=== PATIENT | female | born 2000 | race Caucasian/White ===

== ENCOUNTER 2024-04-13 23:13 | Inpatient (IN) | payer OTHER, SELFPAY ==
[2024-04-13 16:08] VITALS: BP 109/76
[2024-04-13 16:29] LABS: % Basophils 0.3 % (0-2); % Immature Granulocytes 0.3 % (0-0.5); % Lymphocytes 9.1 % (20.5-51.1); % Neutrophils 88.3 % (42.2-75.2); Absolute Lymphocytes 0.7 10^3/uL (1.2-3.4); Absolute Monocytes 0.2 10^3/uL (0.1-0.6); Absolute Neutrophils 6.5 10^3/uL (1.4-6.5); Hematocrit 37.7 % (37.0-47.0); Hemoglobin 12.8 g/dL (12.0-16.0); Mean Corpuscular Hgb 29.4 pg (27.0-31.0); Mean Corpuscular Volume 86.5 fL (81.0-99.0); Mean Platelet Volume 10.2 fL (7.4-10.4); Nucleated Red Blood Cells % 0 %; Platelet Count 314 10^3/uL (130-400); Red Blood Cell Count 4.36 10^6/uL (4.20-5.40); Red Cell Dist. Width 14.2 % (11.5-14.5); White Blood Cell Count 7.4 10^3/uL (4.8-10.8)
[2024-04-13 16:39] LABS: ALT (SGPT) 16 U/L (0-35); AST (SGOT) 19 U/L (14-36); Albumin 5.1 g/dl (3.5-5.0); Alkaline Phosphatase 73 U/L (38-126); Blood Urea Nitrogen 11 mg/dl (7-17); Calcium 9.7 mg/dl (8.4-10.2); Carbon Dioxide 18 mmol/L (22-30); Chloride 105 mmol/L (98-107); Glucose 102 mg/dl (70-99); Potassium 4.2 mmol/L (3.5-5.1); Sodium 142 mmol/L (135-145); Total Bilirubin 0.4 mg/dl (0.2-1.3); Total Protein 7.9 g/dl (6.3-8.2); eGFR > 60.00
[2024-04-13 16:40] LABS: Lipase 84 U/L (23-300)
--- NOTE | 2024-04-13 18:25 | ED.GENMED ---
History of Present Illness
General
Chief Complaint: Abdominal Symptoms
Source: patient
Exam Limitations: none
Time Seen by Provider: 04/13/24 17:56
History of Present Illness
History of Present Illness:
This is a 23 year old female that comes in with c/o abd pain. States that she has had abd pain for the past couple 5 days. States that she is unable to eat but maybe a cracker. States that this causes increased pain and she starts to shake and then
vomiting. Yesterday she went to the ER at [facility] and was given Steroids and Zofran. States that this has made her worse. States that she called her GI Specialist Dr. Wisdom and she has an appointment with her tomorrow, but was told to come to the
ER for further evaluation. Mom states that they were hoping for imaging. States that she has nausea, vomiting, diarrhea, headache and dizziness. States that she also feels a little SOB. Denies any fever, chills, chest pain, urinary burning.
Past History
Past History
ED Past Medical History: GERD, Psychiatric (Anxiety) and Other (Crohn's disease)
ED Past Surgical History: Other (Greenbrier teeth)
Social History
Tobacco: Non-smoker
Alcohol: None
Personal: Single
Living: other (College)
Review of Systems
Review of Systems
All Other Systems: ROS reviewed and negative except as documented in HPI and ROS
Constitutional: Reports no symptoms; Denies fever or chills
EENT: Reports no symptoms
Respiratory: Reports trouble breathing; Denies cough
Cardiac: Reports no symptoms; Denies chest pain
ABD/GI: Reports abdominal pain, nausea, vomiting and diarrhea
: Reports no symptoms; Denies dysuria, frequency or urgency
Musculoskeletal: Reports no symptoms
Skin: Reports no symptoms
Neurological: Reports dizzy and headache
Psychiatric: Reports no symptoms
Phy Exam
General Physical Exam
General Presentation: no apparent distress
General age: appears stated age
General Skin: warm, dry and pale
General Habitus: normal
General Mental: alert
General Hydration: appears well hydrated
ENT Exam
ENT Exam: TM's normal (Large amount of cerumen both ears), pharynx normal and neck supple
Eye Exam
Eye Exam: EOMI
Cardiovascular Exam
Cardiovascular Exam: regular rate/rhythm, no edema, no murmur and normal peripheral pulses
Pulmonary Exam
Pulmonary Exam: lungs clear, no respiratory distress, no rales, chest non tender, no crackles, no rhonchi, no wheezing and no cough
Gastrointestinal Exam
Gastrointestinal Exam: normal bowel sounds, soft, no organomegaly, no pulsatile mass, non distended and tender (Left sided abd tenderness with palpation)
Musculoskeletal Exam
Musculoskeletal Exam: full ROM and no edema
Skin Exam
Skin Exam: warm/dry, no rash, no petechia and pallor
Psychiatric Exam
Psychiatric Exam: normal mood/affect
Course
Orders/Labs/Results
Orders:
Orders
04/13/24 16:16
Complete Blood Count/With Diff Urgent
Comprehensive Metabolic Panel Urgent
Lipase Urgent
04/13/24 18:24
CT Abd/pel W Iv And Oral Contr Urgent
Comment: Crohns history
Reason For Exam: Left sided abd pain
0.9% Sodium Chloride 1000 ml [Nss] 1,000 ml IV BOLUS
Acetaminophen [Tylenol] 1,000 mg PO NOW STA
Iohexol [Omnipaque] See Protocol PO NOW STA
Ondansetron Injectable [Zofran] 4 mg IV NOW STA
Abnormal Lab Results
04/13/24
16:16
Absolute Lymphs (auto) 0.7 L 10^3/uL
(1.2-3.4)
Neutrophils % 88.3 H %
(42.2-75.2)
Lymphocytes % 9.1 L %
(20.5-51.1)
Carbon Dioxide 18 L mmol/L
(22-30)
Glucose 102 H mg/dl
(70-99)
Albumin 5.1 H g/dl
(3.5-5.0)
04/13/24 16:16
04/13/24 16:16
Carbon dioxide low. Glucose nonfasting. Lipase normal at 84
Vital Signs
Initial and Last Documented VS:
Initial Vital Signs
Temp Pulse Resp BP Pulse Ox
98.1 F 87 18 109/76 99
04/13/24 16:08 04/13/24 16:08 04/13/24 16:08 04/13/24 16:08 04/13/24 16:08
Last Documented Vital Signs
Temp Pulse Resp BP Pulse Ox
98.1 F 87 18 109/76 99
04/13/24 16:08 04/13/24 16:08 04/13/24 16:08 04/13/24 16:08 04/13/24 16:08
MDM/Problems Addressed
Differential Diagnosis Includes:
Crohn;s flare
MDM/Problems Addressed:
This is a 23 year old female that comes in with c/o abd pain. States that she has not been able to eat for the past 5 days. States that she has abd pain so she went to the ER at [facility] yesterday. Patient was given Zofran and a steroid. States
that this seems to have made things worse. Patient has an appointment with the GI specialist tomorrow.
Will check labs and get CT scan.
Message sent to Dr. Bustillo with cope of CT report. Will await his response.
Spoke with Gi and will admit patient. Start on Solumedrol 20mg IV TID and will get stool for C-diff and Culture. GI on Consult. Hospitalist notified. Back into see patient and family. Explained that her CT shows that there is a lot of wall
thickening. Will admit
Chronic conditions affecting care:
Crohn's
Acute Exacerbation and/or Progression of Chronic Illness:
Crohn's
*Radiology
Radiology exam reviewed: radiology read reviewed (CT- Moderate contiguous thickening involving th distalileum, involving approximately the distal 20cm. Luminal narrowing, but no evidence for significant small bowel obstruction. NO evidence of
abscess. No evidence of free intraperitoneal air. Minimal pelvic fluid in the right posterior pelvis. ) and other (CT cont-The appendix appears normal. )
*Pulse Oximetry
Patient hypoxic: no
*EKG
Interpreted by ED Provider?: NA
Rate: EKG- N/A
*Oracle Fusion Developer Interpretation
Rate: Oracle Fusion Developer- N/A
*Critical Care Note
Total Time (30-74mins, 75-104mins- exclusive of procedures): Not Applicable
ED Attending Note
-
Portions of this chart may have been created with voice recognition software.� Occasional wrong word or��sound alike� substitutions may have occurred due to the inherent limitations of voice recognition software.
Discharge Plan
Departure
Patient Disposition: Admit
Date of Disposition: 04/13/24
Time of Disposition: 22:10
Admit to: Med/Surg
Presentation/result/management discussed w/ accepting MD/DO: Hospitalist
Patient with high blood pressure during this ER visit?: No
Condition: Good
Covid-19: Not Applicable
Discharge Problem:
Abdominal pain, Crohn's disease
Prescriptions:
No Action
cephalexin 500 MG capsule
500 mg PO TID Qty: 29 0RF
Referrals:
Marin Mosley MD [Family Provider] -
Interventions
Interventions:
*Risk Screen - Suicide Last Done: 04/13/24 16:08
*General Assessment Last Done: 04/13/24 16:08
*Neglect/Abuse Screening Last Done: 04/13/24 16:08
*ED COVID-19 Vaccine History Last Done: 04/13/24 16:08
QO-Bygpay-Mtdrnoyxze Assessment Last Done: 04/13/24 18:43
Discharge Date and Time
Print Language: SETSWANA
[2024-04-13] MEDS: NSS 1000 IV (18:41)
[2024-04-13] MEDS: OMNIPAQUE 50 ML PO (18:42)
[2024-04-13] MEDS: TYLENOL 1000 MG PO (18:42)
[2024-04-13] MEDS: ZOFRAN 4 MG IV (18:42)
[2024-04-13 21:53] VITALS: BP 109/67
[2024-04-13] MEDS: SOLU-MEDROL PF 20 MG IV (22:18)
--- NOTE | 2024-04-13 22:56 | HPS.HSE ---
Family Physician
-
Family Physician: Marin Mosley
Chief Complaint
-
abdominal pain, poor PO tolerence ,
History of Present Illness
23F HX Erin dz on Skyrizi IV q8 week seen at ER:
- onset of abd pain for last 5 days
- unable to eat due to increased pain
- intolerance to shakes thn vomiting.
- Yesterday she went to the ER at [facility] and was given Steroids and Zofran. -
- patient called GI Specialist Dr. Wisdom and she has an appointment with her tomorrow, but was told to come to the ER for further evaluation
ROS
POS nausea, vomiting, diarrhea, headache and dizziness.
Denies any fever, chills, chest pain, urinary burning.
Medical History
Past Medical History
Past Medical History: Reports Psychiatric (anxiety ) and Other (crohn dz )
Past Surgical History: Reports None
Social History
Tobacco: Non-smoker
Alcohol: None
Drug: None
Family History
Family History: Not pertinent
Allergies / Home Medications
Allergies reflects when Allergies were last updated in [facility].
Home Medications with original date entered in [facility]
Allergy/Medication List:
Allergies
Allergy/AdvReac Type Severity Reaction Status Date / Time
lactose Allergy Unknown Verified 04/13/24 16:11
Home Medications
Skyrizi 1 dose IV Q8W 04/13/24
cholecalciferol (vitamin D3) 25 mcg (1,000 unit) tablet 25 mcg PO HS 04/13/24
escitalopram oxalate 10 mg tablet 10 mg PO HS 04/13/24
Review of Systems
-
Constitutional: Reports No Symptoms
EENT: Reports No Symptoms
Respiratory: Reports No Symptoms
Cardiac: Reports No Symptoms
Abdomen/GI: Reports Abdominal Pain, Nausea and Vomiting
: Reports No Symptoms
Musculoskeletal: Reports No Symptoms
Skin: Reports No Symptoms
Neurological: Reports No Symptoms
Endocrine: Reports No Symptoms
Hematologic/Lymphatic: Reports No Symptoms
Psych: Reports No Symptoms
Physical Exam
Vital Signs
Vital Signs
Temp Pulse Resp BP Pulse Ox
98.5 F 70 16 109/67 97
04/13/24 21:53 04/13/24 22:00 04/13/24 21:53 04/13/24 21:53 04/13/24 21:53
Physical Exam
General: Well Developed, Well Nourished and No Apparent Distress
HEENT: NormoCephalic, Moist mucous membranes and Atraumatic
Respiratory: Clear
Cardiac: S1/S2 and Regular Rhythm; No Murmur or Rub
GI: Soft, Non Distended, Normal Bowel Sounds and Tender ( Left sided abd tenderness with palpation ); No Organomegaly
Rectal: Deferred by Provider
Musculoskeletal: No Clubbing, No Cyanosis and No Edema
Skin: No Rash
Neuro: Nonfocal/grossly intact
Laboratory Results
-
04/13/24 16:16
04/13/24 16:16
Laboratory Results
Total Bilirubin 0.4 mg/dl (0.2-1.3) 04/13/24 16:16
AST 19 U/L (14-36) 04/13/24 16:16
ALT 16 U/L (0-35) 04/13/24 16:16
Alkaline Phosphatase 73 U/L (38-126) 04/13/24 16:16
Lipase 84 U/L (23-300) 04/13/24 16:16
Data Reviewed
-
CT Scan: Report Reviewed by me
Lab Data: Labs Reviewed by me
Impression/Plan
-
Data
nl WCC
Hgb 12.8
CO2 18
[address] AP W Iv And Oral Contr
- Moderate contiguous thickening involving the distal ileum, involving approximately the distal 20 cm. Luminal narrowing, - - No evidence for significant small bowel obstruction.
- No evidence of abscess.
- No evidence of free intraperitoneal air.
- Minimal pelvic fluid in the right posterior pelvis.
- The appendix appears normal.
ASSESSMENT & PLAN
Pending Rx reconciliation
AE Crohn's dz
- No evidence for significant small bowel obstruction.
- No evidence of abscess.
- No evidence of free intraperitoneal air.
- Clear diet and ADAT
- IV NS 80/H
- Start on Solumedrol 20mg IV TID
- stool for C-Diff and stool Cx
- GI on Consult
Anxiety
- stable on Escitalopram
DVT Px: SQH
Full code
IP MS
[2024-04-13 23:02] VITALS: BP 108/69
[2024-04-14] VITALS (8 sets, daily range): BP systolic 99–135; BP diastolic 65–77; BMI 19.0
[2024-04-14] MEDS: NSS 1000 IV ×2 (00:39→13:26)
[2024-04-14 06:24] LABS: Hematocrit 35.3 % (37.0-47.0); Hemoglobin 11.9 g/dL (12.0-16.0); Mean Corp Hgb Conc. 33.7 g/dL (33.0-37.0); Mean Corpuscular Volume 86.1 fL (81.0-99.0); Mean Platelet Volume 10.4 fL (7.4-10.4); Platelet Count 301 10^3/uL (130-400); Red Cell Dist. Width 14.2 % (11.5-14.5); White Blood Cell Count 9.4 10^3/uL (4.8-10.8)
[2024-04-14] MEDS: ZOFRAN 4 MG IV (06:30)
[2024-04-14 06:41] LABS: Blood Urea Nitrogen 11 mg/dl (7-17); Carbon Dioxide 18 mmol/L (22-30); Chloride 107 mmol/L (98-107); Estimated Creatinine Clearance 122 ml/min; Glucose 98 mg/dl (70-99); Potassium 4.5 mmol/L (3.5-5.1); Sodium 139 mmol/L (135-145); eGFR > 60.00
[2024-04-14 07:00] LABS: Calcium 9.7 mg/dl (8.4-10.2)
--- NOTE | 2024-04-14 07:14 | CON.GI ---
Consultation
-
Date/Time Consultation Requested: 04/14/24
Date/Time Consultation Performed: 04/14/24
Requesting Provider: ER
Performing Provider: Dr. Wisdom
Reason for Consultation: crohns flare
Medical History
Chief Complaint / HPI
Chief Complaint: Nausea vomiting abdominal pain
History of Present Illness:
Ana is a 23-year-old female with ileocolonic Crohn's disease who previously failed Humira and had been steroid-dependent on budesonide 9 mg since June 2023 who was started on Skyrizi in November 2023 who had been improving and we titrated her off
budesonide as of 2 weeks ago. Unfortunately this week she started having right lower and flank pain, nausea unable to eat or drink along with some mild nonbloody diarrhea. She went to an emergency room near [facility] and was given IV fluids and
had some labs done and was given 50 mg of prednisone. She has been unable to tolerate any oral intake and therefore her mother brought her here to [place].
here in the ER hgb stable with relatively normal CBC, CRP <5, normal CMP, afebrile. 04/13/24 CT with IV/PO contrast showed distal 20cm of the ileum to be moderately thickened but not obstructed. no bowel obstruction. contrast passes into the colon.
no abscess.
Past Medical History
Past Medical History: Other (small bowel crohns, vit D and iron deficiency)
Past Surgical History: None
Social History
Tobacco: Non-Smoker
Alcohol: Occasional
Drug: None
Personal: Single
Living: With Roomate
Family History
Family History: Other (father crohns)
Allergies / Home Medications
Allergy/AdvReac Type Severity Reaction Status Date / Time
lactose Allergy Unknown Verified 04/13/24 16:11
�Medication �Instructions �Recorded
Skyrizi 1 dose IV Q8W 04/13/24
cholecalciferol (vitamin D3) 25 25 mcg PO HS 04/13/24
mcg (1,000 unit) tablet
escitalopram oxalate 10 mg tablet 10 mg PO HS 04/13/24
Review of Systems
-
History Source: Patient
All other systems: A 12 pt ROS was Negative except as stated above in HPI
Constitutional: Reports Weight Loss
Vital Signs
Temp Pulse Resp BP Pulse Ox
98.4 F 61 16 135/77 99
04/14/24 06:27 04/14/24 06:27 04/14/24 06:27 04/14/24 06:27 04/14/24 06:27
Physical Exam
Exam
General: No Apparent Distress
HEENT: Anicteric
Respiratory: Clear
Cardiac: S1/S2
GI: Soft and Tender (mildly tender RLQ)
Neuro: AO x 3
Psych: Calm
Results
WBC 9.4 10^3/uL (4.8-10.8) 04/14/24 06:05
Hgb 11.9 g/dL (12.0-16.0) L 04/14/24 06:05
Hct 35.3 % (37.0-47.0) L 04/14/24 06:05
MCV 86.1 fL (81.0-99.0) 04/14/24 06:05
Plt Count 301 10^3/uL (130-400) 04/14/24 06:05
Absolute Neuts (auto) 6.5 10^3/uL (1.4-6.5) 04/13/24 16:16
Sodium 139 mmol/L (135-145) 04/14/24 06:05
Potassium 4.5 mmol/L (3.5-5.1) 04/14/24 06:05
Chloride 107 mmol/L (98-107) 04/14/24 06:05
Carbon Dioxide 18 mmol/L (22-30) L 04/14/24 06:05
BUN 11 mg/dl (7-17) 04/14/24 06:05
Creatinine 0.7 mg/dL (0.6-1.0) 04/14/24 06:05
Calcium 9.7 mg/dl (8.4-10.2) 04/14/24 06:05
Total Bilirubin 0.4 mg/dl (0.2-1.3) 04/13/24 16:16
AST 19 U/L (14-36) 04/13/24 16:16
ALT 16 U/L (0-35) 04/13/24 16:16
Alkaline Phosphatase 73 U/L (38-126) 04/13/24 16:16
Lipase 84 U/L (23-300) 04/13/24 16:16
Diagnostic Image Results:
04/13/24 -reviewed CT scan showing distal 20 cm of the ileum to be moderately thickened. No obstruction. Oral contrast passes into the colon.
05/2023 MRA showing active inflammatory changes in the terminal ileum with 2 short segments of luminal narrowing with no obstruction
Prior GI Procedures:
EGD: August 2023 at [facility] normal
Colonoscopy: Last colonoscopy was at [facility] in August 2023 showing mild active ileitis otherwise normal colon
Assessment / Plan
-
Ana is a 23-year-old female previously known to [facility] for history of ileocolonic inflammatory, nonpenetrating, not stricturing Crohn's disease with no prior surgeries that involved with terminal ileum and cecum who failed Humira who has been
steroid-dependent recently started Skyrizi in the summer 2023 here with Crohn's flare with ileal inflammation on imaging and clinical symptoms of flare
# Active small bowel Crohn's disease -
IV steroids every 8, if dramatically improves okay to start p.o. tomorrow
Clear liquids
Lovenox
I have asked my office to try and get approval for every 4 weeks Skyrizi
Continue vitamin D, IV iron
Stool studies including fecal calprotectin
Discussed with her father in person in my office
Data Reviewed
-
CT Scan: Image Personally Visualized and interpreted and Report Reviewed by me
Old Records: Reviewed
-
-
Thank you for consultation and allowing me to participate in the patient's care. Please call the tanning consultant GI physician during the after hours with any questions or concerns.
[2024-04-14] MEDS: SOLU-MEDROL PF 20 MG IV ×3 (08:03→23:22)
[2024-04-14 08:44] LABS: Erythrocyte Sed Rate 9 mm/hour (0-20)
--- NOTE | 2024-04-14 08:53 | W.PN.HOSP.TC ---
Today's Communication/Plan
-
Check stool for C. difficile and bacteria
Maintain on steroid
Assessment / Plan
Assessment / Plan
CT AP W Iv And Oral Contr
- Moderate contiguous thickening involving the distal ileum, involving approximately the distal 20 cm. Luminal narrowing, - - No evidence for significant small bowel obstruction.
- No evidence of abscess.
- No evidence of free intraperitoneal air.
- Minimal pelvic fluid in the right posterior pelvis.
- The appendix appears normal.

1. Crohn's disease flareup
-Patient has a history of Crohn's disease for few years, following with Dr. Wisdom
-Denies any complicating factor of abscess/fistulous tract formation in the past
-Currently being maintained on Skyrizi every 8 weeks
-Patient was recommended to come to ER by Dr. Wisdom
-CTAP in ER showing thickening of distal ileal segment of roughly 20 cm
-Maintain on clear liquid diet with advancement as tolerated
-Patient started on IV Solu-Medrol 20 mg every 8 hours
-Stool check to r/o C. difficile and bacterial etiology
-GI following and help appreciated
2. Anxiety
- stable on Escitalopram
DVT Px: SQH
Full code
Total time spent : 52 mins
Anticipated Discharge: 24 - 48 hours
Subjective/Interval History
-
Date of Service: April 14, 2024
Some abdominal discomfort, no nausea vomiting
Afebrile
No other reported issues
Objective Data
-
Labs:
Laboratory Results
04/14/24
06:05
WBC 9.4
Hgb 11.9 L
Hct 35.3 L
Plt Count 301
Sodium 139
Potassium 4.5
Chloride 107
Carbon Dioxide 18 L
BUN 11
Creatinine 0.7
Glucose 98
Calcium 9.7
Vital Signs:
Vital Signs
Temp Pulse Resp BP Pulse Ox
98.6 F 60 15 110/65 98
04/14/24 07:35 04/14/24 07:35 04/14/24 07:35 04/14/24 07:35 04/14/24 07:35
Review of Systems
-
Respiratory: Reports No Symptoms
Cardiac: Reports No Symptoms
Abdomen/GI: Reports Abdominal Pain and Diarrhea; Denies Nausea or Vomiting
Physical Exam
-
General: No Apparent Distress and Comfortable
HEENT: Negative Oxygen
Respiratory: Clear to Auscultation
Cardiac: Regular Rhythm and S1/S2; Negative Murmur or Rub
GI: Soft, Nontender, Nondistended and Normal Bowel Sounds
Musculoskeletal: No Edema
Neuro: Awake, Alert, Oriented, No Motor Deficits and Nonfocal/Grossly Intact
Psych: Calm
[2024-04-14 09:03] LABS: C-Reactive Protein < 5.00 mg/L (0.0-10.00)
[2024-04-14] MEDS: FERRLECIT 110 MG IV (13:27)
--- NOTE | 2024-04-14 13:52 | CM ---
CM reviewed chart. CM introduced self and role. Patient's parents also in room. 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 She denies any +SDOHs. She is independent, drives and owns no DME. She lives with her
parents when she is not at school. Her parents will provide transportation once she is discharged from the hospital. She has an active PCP and pharmacy.
ANTICIPATED DISCHARGE DISPOSITION: Home with parents, when medically cleared.
--- NOTE | 2024-04-14 16:52 | PTCARENOTE ---
Patient admitted to . [facility]. Patient oriented to unit. IVF transfusing. Parents at bedside. Call ang within reach .
[2024-04-14] MEDS: LEXAPRO 10 MG PO (23:22)
[2024-04-15] MEDS: NSS 1000 IV (02:47)
[2024-04-15 06:23] LABS: Hematocrit 34.4 % (37.0-47.0); Hemoglobin 11.2 g/dL (12.0-16.0); Mean Corp Hgb Conc. 32.6 g/dL (33.0-37.0); Mean Corpuscular Hgb 28.8 pg (27.0-31.0); Mean Corpuscular Volume 88.4 fL (81.0-99.0); Platelet Count 282 10^3/uL (130-400); Red Blood Cell Count 3.89 10^6/uL (4.20-5.40); Red Cell Dist. Width 14.2 % (11.5-14.5); White Blood Cell Count 9.1 10^3/uL (4.8-10.8)
[2024-04-15 06:35] LABS: Blood Urea Nitrogen 12 mg/dl (7-17); Calcium 9.2 mg/dl (8.4-10.2); Carbon Dioxide 26 mmol/L (22-30); Chloride 104 mmol/L (98-107); Estimated Creatinine Clearance 114 ml/min; Glucose 101 mg/dl (70-99); Potassium 4.5 mmol/L (3.5-5.1); Sodium 141 mmol/L (135-145); eGFR > 60.00
[2024-04-15 07:20] VITALS: BP 104/62
[2024-04-15] MEDS: SOLU-MEDROL PF 20 MG IV ×3 (08:50→23:00)
--- NOTE | 2024-04-15 10:59 | W.PN.GI.CBS2 ---
Today's Communication / Plan
-
full liquid diet
continue IV steroid
Assessment / Plan
-
Ana is a 23-year-old female previously known to [facility] for history of ileocolonic inflammatory, nonpenetrating, not stricturing Crohn's disease with no prior surgeries that involved with terminal ileum and cecum who failed Humira who has been
steroid-dependent recently started Skyrizi in the summer 2023 here with Crohn's flare with ileal inflammation on imaging and clinical symptoms of flare
# Active small bowel Crohn's disease -
continue IV solumedrol 20 mg tid for another 24 hours . if clinically better we can switch to oral steroids tomorrow
Full liquid diet
Lovenox
have asked GI office to try and get approval for every 4 weeks Skyrizi
Continue vitamin D, IV iron
stool c.diff negative. Follow up Stool culture / fecal calprotectin
Planned Discussed with patient's mother as well
Total Time Spent with Patient (in minutes): 35
Subjective
Subjective
Date of Service: April 15, 2024
feeling better. abdominal pain 08/23 now. still having loose stools . tolerating CL
Objective
Data Reviewed
Laboratory Data:
Laboratory Results
04/15/24 05:30
04/15/24 05:30
Laboratory Results
Total Bilirubin 0.4 mg/dl (0.2-1.3) 04/13/24 16:16
AST 19 U/L (14-36) 04/13/24 16:16
ALT 16 U/L (0-35) 04/13/24 16:16
Alkaline Phosphatase 73 U/L (38-126) 04/13/24 16:16
Lipase 84 U/L (23-300) 04/13/24 16:16
Vital Signs and I&O:
Vital Signs
Temp Pulse Resp BP Pulse Ox
97.6 F 51 14 104/62 96
04/15/24 07:20 04/15/24 07:20 04/15/24 07:20 04/15/24 07:20 04/15/24 07:20
I&O
04/14/24 04/15/24 04/16/24
06:59 06:59 06:59
Intake Total 2159 / 2159
Output Total
Balance 2158 / 2158
Physical Exam
Physical Exam
GI: Soft, Non Distended and Non Tender
--- NOTE | 2024-04-15 11:53 | CM ---
Patient seen at bedside. Patient mother with patient sleeping. Patient plan is home with no needs. CM will follow for any discharge planning needs.
Plan; home with family no needs anticipated at this time
[2024-04-15] MEDS: FERRLECIT 110 MG IV (12:47)
[2024-04-15] MEDS: ZOFRAN 4 MG IV (12:48)
--- NOTE | 2024-04-15 13:52 | W.PN.HOSP.TC ---
Today's Communication/Plan
-
see note
Assessment / Plan
Assessment / Plan
CT AP W Iv And Oral Contr
- Moderate contiguous thickening involving the distal ileum, involving approximately the distal 20 cm. Luminal narrowing, - - No evidence for significant small bowel obstruction.
- No evidence of abscess.
- No evidence of free intraperitoneal air.
- Minimal pelvic fluid in the right posterior pelvis.
- The appendix appears normal.

1. Crohn's disease flareup
-Patient has a history of Crohn's disease for few years, following with Dr. Wisdom
-Denies any complicating factor of abscess/fistulous tract formation in the past
-Currently being maintained on Skyrizi every 8 weeks
-Patient was recommended to come to ER by Dr. Wisdom
-CTAP in ER showing thickening of distal ileal segment of roughly 20 cm
-Patient started on IV Solu-Medrol 20 mg every 8 hours
-GI following and help appreciated
-Not able to tolerate diet today. On [place] diet.
-Zofran ordered for nausea/vomiting
2. Anxiety
- stable on Escitalopram
DVT Px: SQH
Full code
Anticipated Discharge: 24 - 48 hours
Subjective/Interval History
-
Date of Service: April 15, 2024
still have some lower abd pain
no nausea/vomiting
Objective Data
-
Labs:
Laboratory Results
04/15/24
05:30
WBC 9.1
Hgb 11.2 L
Hct 34.4 L
Plt Count 282
Sodium 141
Potassium 4.5
Chloride 104
Carbon Dioxide 26
BUN 12
Creatinine 0.7
Glucose 101 H
Calcium 9.2
Vital Signs:
Vital Signs
Temp Pulse Resp BP Pulse Ox
97.6 F 51 14 104/62 96
04/15/24 07:20 04/15/24 07:20 04/15/24 07:20 04/15/24 07:20 04/15/24 07:20
I&O
04/14/24 04/15/24 04/16/24
06:59 06:59 06:59
Intake Total 2159 / 2159
Output Total
Balance 2158 / 2158
Review of Systems
-
Respiratory: Reports No Symptoms
Cardiac: Reports No Symptoms
Abdomen/GI: Reports No Symptoms
Physical Exam
-
General: No Apparent Distress and Comfortable
HEENT: Negative Oxygen
Respiratory: Clear to Auscultation
Cardiac: S1/S2; Negative Murmur or Rub
GI: Soft and Nondistended
Musculoskeletal: No Edema
Neuro: Awake, Alert, Oriented, No Motor Deficits and Nonfocal/Grossly Intact
Psych: Calm
[2024-04-15 15:47] VITALS: BP 108/64
[2024-04-15 22:58] VITALS: BP 111/69
[2024-04-15] MEDS: LEXAPRO 10 MG PO (22:58)
[2024-04-16 07:07] VITALS: BP 136/75
--- NOTE | 2024-04-16 07:43 | W.PN.GI.CBS2 ---
Today's Communication / Plan
-
Stop IV steroids, transition to oral Prednisone today. Advance diet to low-fiber, low-residue. Favor ongoing observation for additional 24 hrs. If ongoing improvement, likely d/c over weekend with close outpatient f/u with her primary
Professor Of [employer] (Dr. Wisdom).
Assessment / Plan
-
Ana is a 23-year-old female previously known to [facility] for history of ileocolonic inflammatory, nonpenetrating, not stricturing Crohn's disease with no prior surgeries that involved with terminal ileum and cecum who failed Humira who has been
steroid-dependent recently started Skyrizi in the summer 2023 here with Crohn's flare with ileal inflammation on imaging and clinical symptoms of flare
#Active small bowel Crohn's disease
#Crohns Flare
Recommendations:
- Advance diet to low-fiber, low-residue diet
- Stop IV Methylpred (04/14 - 04/16)
- Transition to oral Prednisone 40 mg today given ongoing clinical improvement
- Favor inpatient monitoring for additional 24 hrs while making transition to oral p.o steroids and advancement of diet
- Stool studies (-) for CDI and infectious etiologies, f/u fecal calprotectin
- Continue vitamin D, IV iron
- Chemical VTE ppx with lovenox while inpatient
- Dr. Wisdom have asked GI office to try and get approval for every 4 weeks Skyrizi
Planned Discussed with patient's mother as well early this AM.
Inpatient GI team will continue to follow while inpatient.
Subjective
Subjective
Date of Service: April 16, 2024
- No acute events overnight
Resting comfortably this AM. Had one formed stool over the past 24 hrs. No further diarrhea or loose stools. Admits resolution of abdominal pain without any nausea or vomiting. Reports near relief of all symptoms since being on IV steroids.
Discussed with patient's mother early this AM via FaceTime on patient's phone.
Objective
Data Reviewed
Laboratory Data:
Laboratory Results
Total Bilirubin 0.4 mg/dl (0.2-1.3) 04/13/24 16:16
AST 19 U/L (14-36) 04/13/24 16:16
ALT 16 U/L (0-35) 04/13/24 16:16
Alkaline Phosphatase 73 U/L (38-126) 04/13/24 16:16
Lipase 84 U/L (23-300) 04/13/24 16:16
Vital Signs and I&O:
Vital Signs
Temp Pulse Resp BP Pulse Ox
98.3 F 66 16 136/75 100
04/16/24 07:07 04/16/24 07:07 04/16/24 07:07 04/16/24 07:07 04/16/24 07:07
I&O
04/15/24 04/16/24 04/17/24
06:59 06:59 06:59
Intake Total 2160 / 2160 3010 / 3010
Output Total
Balance 2159 / 2159 3010 / 3010
Physical Exam
Physical Exam
HEENT: Anicteric and Moist mucous membranes
Cardiology: Normal Sinus Rhythm
Pulmonary: Clear
GI: Soft, Non Distended, Flat and Non Tender
Extremities: No Edema and Warm
Neuro: Non Focal
[2024-04-16 08:29] LABS: Blood Urea Nitrogen 10 mg/dl (7-17); Calcium 9.8 mg/dl (8.4-10.2); Carbon Dioxide 26 mmol/L (22-30); Chloride 101 mmol/L (98-107); Estimated Creatinine Clearance 100 ml/min; Glucose 89 mg/dl (70-99); Potassium 4.1 mmol/L (3.5-5.1); Sodium 141 mmol/L (135-145); eGFR > 60.00
[2024-04-16 08:32] LABS: Hematocrit 39.9 % (37.0-47.0); Hemoglobin 13.2 g/dL (12.0-16.0); Mean Corp Hgb Conc. 33.1 g/dL (33.0-37.0); Mean Corpuscular Hgb 29.1 pg (27.0-31.0); Mean Corpuscular Volume 88.1 fL (81.0-99.0); Platelet Count 342 10^3/uL (130-400); Red Blood Cell Count 4.53 10^6/uL (4.20-5.40); White Blood Cell Count 9.9 10^3/uL (4.8-10.8)
[2024-04-16] MEDS: DELTASONE 40 MG PO (08:44)
[2024-04-16] MEDS: ZOFRAN 4 MG IV (08:48)
[2024-04-16 11:11] VITALS: BP 124/85
--- NOTE | 2024-04-16 11:12 | PTCARENOTE ---
Patient having increased nausea this am. Zofran given around 0900 per order. Patient has not eaten. Patient dry heaving but no emesis. Patient had one soft formed bm. VSS. No prn medication to give at this time. made aware.
[2024-04-16] MEDS: REGLAN 5 MG IV (11:36)
--- NOTE | 2024-04-16 12:44 | W.PN.HOSP.TC ---
Today's Communication/Plan
-
continue steroids per GI
encourage oral intake
Assessment / Plan
Assessment / Plan
CT AP W Iv And Oral Contr
- Moderate contiguous thickening involving the distal ileum, involving approximately the distal 20 cm. Luminal narrowing, - - No evidence for significant small bowel obstruction.
- No evidence of abscess.
- No evidence of free intraperitoneal air.
- Minimal pelvic fluid in the right posterior pelvis.
- The appendix appears normal.

1. Crohn's disease flareup
-Patient has a history of Crohn's disease for few years, following with Dr. Wisdom
-Denies any complicating factor of abscess/fistulous tract formation in the past
-Currently being maintained on Skyrizi every 8 weeks
-Patient was recommended to come to ER by Dr. Wisdom
-CTAP in ER showing thickening of distal ileal segment of roughly 20 cm
-Patient started on IV Solu-Medrol 20 mg every 8 hours initially, now switched to prednisone 40mg/d
-GI following and help appreciated
-Diet has been changed to LR diet
-continue monitoring
2. Anxiety
- stable on Escitalopram
DVT Px: SQH
Full code
Anticipated Discharge: 24 - 48 hours
Subjective/Interval History
-
Date of Service: April 16, 2024
continues to feel nauseous/poor apetite
afebrile
no other reported problems
Objective Data
-
Labs:
Laboratory Results
04/16/24
06:48
WBC 9.9
Hgb 13.2
Hct 39.9
Plt Count 342 D
Sodium 141
Potassium 4.1
Chloride 101
Carbon Dioxide 26
BUN 10
Creatinine 0.8
Glucose 89
Calcium 9.8
Vital Signs:
Vital Signs
Temp Pulse Resp BP Pulse Ox
97.9 F 83 16 124/85 100
04/16/24 11:11 04/16/24 11:11 04/16/24 11:11 04/16/24 11:11 04/16/24 07:07
I&O
04/15/24 04/16/24 04/17/24
06:59 06:59 06:59
Intake Total 2160 / 2160 3010 / 3010
Output Total
Balance 2159 / 2159 3010 / 3010
Review of Systems
-
Respiratory: Reports No Symptoms
Cardiac: Reports No Symptoms
Abdomen/GI: Reports Abdominal Pain, Nausea and Diarrhea
Physical Exam
-
General: No Apparent Distress and Comfortable
HEENT: Negative Oxygen
Respiratory: Clear to Auscultation
Cardiac: S1/S2; Negative Murmur or Rub
GI: Soft and Nondistended
Musculoskeletal: No Edema
Neuro: Awake, Alert, Oriented, No Motor Deficits and Nonfocal/Grossly Intact
Psych: Calm
[2024-04-16] MEDS: FERRLECIT IV (13:29)
[2024-04-16 15:00] VITALS: BP 102/67
[2024-04-16] MEDS: LEXAPRO 10 MG PO (21:45)
[2024-04-16 23:27] VITALS: BP 115/76
[2024-04-17] MEDS: ZOFRAN 4 MG IV ×2 (01:08→09:09)
[2024-04-17] MEDS: FLUSH (NSS) 2 FLUSH IV ×2 (01:10→23:28)
[2024-04-17 07:05] VITALS: BP 95/62
[2024-04-17] MEDS: DELTASONE 40 MG PO (08:23)
--- NOTE | 2024-04-17 09:32 | W.PN.GI.CBS2 ---
Today's Communication / Plan
-
Worsening symptoms with abdominal cramping and diarrhea on p.o prednisone. Restarted IV steroids for additional 24-48 hrs in hopes of improvement for her Crohn's flare. Discussed with patient's mother this AM. Rest of care as outlined below.
Assessment / Plan
-
Ana is a 23-year-old female previously known to [facility] for history of ileocolonic inflammatory, nonpenetrating, not stricturing Crohn's disease with no prior surgeries that involved with terminal ileum and cecum who failed Humira who has been
steroid-dependent recently started Skyrizi in the summer 2023 here with Crohn's flare with ileal inflammation on imaging and clinical symptoms of flare
#Active small bowel Crohn's disease
#Crohns Flare
Recommendations:
- May continue low-fiber, low-residue diet
- Transitioned to oral Prednisone on 04/16 given improving symptoms, but with worsening cramping and recurrent diarrhea with increase frequency in BMs
- Restart IV Methylpred 20 mg q8 hrs today. May need an additional 24-48 hrs of IV steroids (previously on IV steroids from 04/14 - 04/15 - total of 2 days)
- Stool studies (-) for CDI and infectious etiologies, f/u fecal calprotectin
- Continue vitamin D, IV iron
- Chemical VTE ppx with lovenox while inpatient
- Dr. Wisdom have asked GI office to try and get approval for every 4 weeks Adithya. Will look into this further next week on Friday
- Rest of care per primary team
Planned discussed with patient's mother early this AM via FaceTime.
Discussed with internal medicine primary team.
Inpatient GI team will continue to follow while inpatient.
Subjective
Subjective
Date of Service: April 17, 2024
- No acute events overnight
Feeling worse yesterday late afternoon / evening with cramping overnight. Had diarrhea with looser stools with mucus after switching back to oral steroids. Previously having one BM on IV steroids, now 3 episodes over 24 hrs. Was able to eat lunch /
dinner and had turkey and soup without difficulty. Mild nausea but no vomiting. Otherwise, fevers/chills or night sweats.
Objective
Data Reviewed
Laboratory Data:
Laboratory Results
04/16/24 06:48
04/16/24 06:48
Laboratory Results
Total Bilirubin 0.4 mg/dl (0.2-1.3) 04/13/24 16:16
AST 19 U/L (14-36) 04/13/24 16:16
ALT 16 U/L (0-35) 04/13/24 16:16
Alkaline Phosphatase 73 U/L (38-126) 04/13/24 16:16
Lipase 84 U/L (23-300) 04/13/24 16:16
Vital Signs and I&O:
Vital Signs
Temp Pulse Resp BP Pulse Ox
98.3 F 58 16 95/62 100
04/17/24 07:05 04/17/24 07:05 04/17/24 07:05 04/17/24 07:05 04/17/24 07:05
I&O
04/16/24 04/17/24 04/18/24
06:59 06:59 05:59
Intake Total 3010 / 3010 1320 / 1320
Balance 3010 / 3010 1320 / 1320
Physical Exam
Physical Exam
HEENT: Anicteric and Moist mucous membranes
Cardiology: Normal Sinus Rhythm
Pulmonary: Clear
GI: Soft, Non Distended and Tender (Mild tenderness throughout abdomen without rebound/guarding)
Extremities: No Edema
Neuro: Non Focal
[2024-04-17] MEDS: SOLU-MEDROL PF 20 MG IV ×3 (10:58→23:25)
--- NOTE | 2024-04-17 12:28 | W.PN.HOSP.TC ---
Today's Communication/Plan
-
started on iv steroids
diet as tolerated
Assessment / Plan
Assessment / Plan
CT AP W Iv And Oral Contr
- Moderate contiguous thickening involving the distal ileum, involving approximately the distal 20 cm. Luminal narrowing, - - No evidence for significant small bowel obstruction.
- No evidence of abscess.
- No evidence of free intraperitoneal air.
- Minimal pelvic fluid in the right posterior pelvis.
- The appendix appears normal.

1. Crohn's disease flareup
-Patient has a history of Crohn's disease for few years, following with Dr. Wisdom
-Denies any complicating factor of abscess/fistulous tract formation in the past
-Currently being maintained on Skyrizi every 8 weeks
-Patient was recommended to come to ER by Dr. Wisdom
-CTAP in ER showing thickening of distal ileal segment of roughly 20 cm
-GI following and help appreciated
-Diet has been changed to LR diet
-in light of ongoing symptoms patient have been switched back to IV steroids again. GI managing.
-IV ferlicit hold if confounding with abd symptoms.
2. Anxiety
- stable on Escitalopram
DVT Px: SQH
Full code
Anticipated Discharge: > 48 hours
Subjective/Interval History
-
Date of Service: April 17, 2024
continues to have nausea, no vomiting
have some abd discomfort/pain as well
continues to have diarrhea
Objective Data
-
Vital Signs:
Vital Signs
Temp Pulse Resp BP Pulse Ox
98.3 F 58 16 95/62 100
04/17/24 07:05 04/17/24 07:05 04/17/24 07:05 04/17/24 07:05 04/17/24 07:05
I&O
04/16/24 04/17/24 04/18/24
06:59 06:59 05:59
Intake Total 3010 / 3010 1320 / 1320
Balance 3010 / 3010 1320 / 1320
Review of Systems
-
Respiratory: Reports No Symptoms
Cardiac: Reports No Symptoms
Abdomen/GI: Reports Abdominal Pain, Nausea and Diarrhea
Physical Exam
-
General: No Apparent Distress and Comfortable
HEENT: Negative Oxygen
Respiratory: Clear to Auscultation
Cardiac: S1/S2; Negative Murmur or Rub
GI: Soft and Nondistended
Musculoskeletal: No Edema
Neuro: Awake, Alert, Oriented, No Motor Deficits and Nonfocal/Grossly Intact
Psych: Calm
[2024-04-17 15:05] VITALS: BP 107/72
[2024-04-17] MEDS: LEXAPRO 10 MG PO (21:25)
[2024-04-17 23:04] VITALS: BP 96/66
[2024-04-18 07:03] VITALS: BP 102/63
[2024-04-18 07:05] LABS: Hematocrit 40.9 % (37.0-47.0); Hemoglobin 13.7 g/dL (12.0-16.0); Mean Corp Hgb Conc. 33.5 g/dL (33.0-37.0); Mean Corpuscular Hgb 29.8 pg (27.0-31.0); Mean Corpuscular Volume 88.9 fL (81.0-99.0); Mean Platelet Volume 10.7 fL (7.4-10.4); Platelet Count 347 10^3/uL (130-400); Red Cell Dist. Width 13.6 % (11.5-14.5); White Blood Cell Count 12.9 10^3/uL (4.8-10.8)
[2024-04-18 07:22] LABS: Blood Urea Nitrogen 16 mg/dl (7-17); Carbon Dioxide 25 mmol/L (22-30); Chloride 102 mmol/L (98-107); Estimated Creatinine Clearance 114 ml/min; Glucose 95 mg/dl (70-99); Potassium 4.5 mmol/L (3.5-5.1); Sodium 142 mmol/L (135-145); eGFR > 60.00
[2024-04-18] MEDS: SOLU-MEDROL PF 20 MG IV ×3 (08:18→23:08)
--- NOTE | 2024-04-18 08:33 | W.PN.GI.CBS2 ---
Today's Communication / Plan
-
Continue IV Methylpred 20 mg TiD for additional 24 hrs, repeat CRP pending along with fecal calprotectin. Plan to transition to oral Prednisone tomorrow. Hopeful for improvement in next 24-48 hrs. Rest of care as outlined below.
Assessment / Plan
-
Ana is a 23-year-old female previously known to [facility] for history of ileocolonic inflammatory, nonpenetrating, not stricturing Crohn's disease with no prior surgeries that involved with terminal ileum and cecum who failed Humira who has been
steroid-dependent recently started Skyrizi in the summer 2023 here with Crohn's flare with ileal inflammation on imaging and clinical symptoms of flare
#Active small bowel Crohn's disease
#Crohns Flare
Recommendations:
- May continue low-fiber, low-residue diet
- Transitioned back to IV Methylpred 20 mg TiD yesterday, 04/17, given worsening pain and loose stools when switched to oral Prednisone (04/16)
- She only received a total of 48 hrs of IV steroids from admission and possibly transitioned to orals too early given her improving symptoms and previous nml CRP
- Favor additional day of IV Methylpred 20 mg TiD for an additional 24 hrs (would be total of 4 days in total of IV steroids 04/14 - 04/15 and 04/17 - 04/18)
- Plan to transition to oral Prednisone 40 mg tomorrow
- Have ordered repeat CRP to give us more objective data to assess for any ongoing inflammation (prior CRP < 5.00 on 04/14)
- Fecal calprotectin still pending
- Slight increase in leukocytosis with WBC 12k, but likely steroid-induced
- Stool studies (-) for CDI and infectious etiologies
- Continue vitamin D, IV iron
- Chemical VTE ppx with lovenox while inpatient
- Will help arrange close f/u with her outpatient Clinical Informatics Specialist (Dr. Wisdom) and further look into approval regarding approval for Skyrizi q 4 weeks
- Rest of care per primary team
Discussed with internal medicine primary team this AM.
Inpatient GI team will continue to follow while inpatient.
Subjective
Subjective
Date of Service: April 18, 2024
- Transitioned back to IV Methylpred 20 mg TiD yesterday given worsening pain and loose stools when switched to oral Prednisone (04/16)
- CRP on admission wnl (< 5.00)
Feeling better this morning, was finally able to eat dinner. Had fish and mashed potatoes. No fevers, chills or other constitutional symptoms. Anxious about going home, but notes improving abdominal cramps and only 3 looser stools over 24 hrs. No
blood or mucous.
Repeat CRP pending this AM.
Objective
Data Reviewed
Laboratory Data:
Laboratory Results
04/18/24 06:29
04/18/24 06:29
Laboratory Results
Total Bilirubin 0.4 mg/dl (0.2-1.3) 04/13/24 16:16
AST 19 U/L (14-36) 04/13/24 16:16
ALT 16 U/L (0-35) 04/13/24 16:16
Alkaline Phosphatase 73 U/L (38-126) 04/13/24 16:16
Lipase 84 U/L (23-300) 04/13/24 16:16
Vital Signs and I&O:
Vital Signs
Temp Pulse Resp BP Pulse Ox
97.6 F 56 16 102/63 100
04/18/24 07:03 04/18/24 07:03 04/18/24 07:03 04/18/24 07:03 04/18/24 07:03
I&O
04/17/24 04/18/24 04/19/24
07:59 06:59 06:59
Intake Total
Balance
Physical Exam
Physical Exam
HEENT: Anicteric and Moist mucous membranes
Cardiology: Normal Sinus Rhythm
Pulmonary: Clear and Other (Normal WOB on room ait)
GI: Soft, Non Distended and Non Tender
Extremities: No Edema
Neuro: Non Focal
[2024-04-18 08:56] LABS: C-Reactive Protein < 5.00 mg/L (0.0-10.00)
--- NOTE | 2024-04-18 13:35 | W.PN.HOSP.TC ---
Today's Communication/Plan
-
see note
Assessment / Plan
Assessment / Plan
CT AP W Iv And Oral Contr
- Moderate contiguous thickening involving the distal ileum, involving approximately the distal 20 cm. Luminal narrowing, - - No evidence for significant small bowel obstruction.
- No evidence of abscess.
- No evidence of free intraperitoneal air.
- Minimal pelvic fluid in the right posterior pelvis.
- The appendix appears normal.

1. Crohn's disease flareup
-Patient has a history of Crohn's disease for few years, following with Dr. Wisdom
-Denies any complicating factor of abscess/fistulous tract formation in the past
-Currently being maintained on Skyrizi every 8 weeks
-Patient was recommended to come to ER by Dr. Wisdom
-CTAP in ER showing thickening of distal ileal segment of roughly 20 cm
-GI following and help appreciated
-Diet has been changed to LR diet
-IV ferlicit hold as confounding with abd symptoms.
-Continue IV Solu-Medrol for 1 more night, possible transition to oral tomorrow
-CRP normal
2. Anxiety
- stable on Escitalopram
DVT Px: SQH
Full code
Anticipated Discharge: Within 24 hours
Subjective/Interval History
-
Date of Service: April 18, 2024
Subjective feeling better
Denies of having any nausea or vomiting
Decreasing frequency of bowel movements
Abdominal pain is better
Objective Data
-
Labs:
Laboratory Results
04/18/24
06:29
WBC 12.9 H
Hgb 13.7
Hct 40.9
Plt Count 347
Sodium 142
Potassium 4.5
Chloride 102
Carbon Dioxide 25
BUN 16
Creatinine 0.7
Glucose 95
Calcium 10.0
Vital Signs:
Vital Signs
Temp Pulse Resp BP Pulse Ox
97.6 F 56 16 102/63 100
04/18/24 07:03 04/18/24 07:03 04/18/24 07:03 04/18/24 07:03 04/18/24 07:03
I&O
04/17/24 04/18/24 04/19/24
07:59 06:59 06:59
Intake Total
Balance
Review of Systems
-
Respiratory: Reports No Symptoms
Cardiac: Reports No Symptoms
Abdomen/GI: Denies Abdominal Pain, Nausea or Vomiting
Physical Exam
-
General: No Apparent Distress and Comfortable
HEENT: Negative Oxygen
Respiratory: Clear to Auscultation
Cardiac: S1/S2; Negative Murmur or Rub
GI: Soft and Nondistended
Musculoskeletal: No Edema
Neuro: Awake, Alert, Oriented, No Motor Deficits and Nonfocal/Grossly Intact
Psych: Calm
[2024-04-18 15:05] VITALS: BP 104/71
[2024-04-18] MEDS: LEXAPRO 10 MG PO (23:10)
[2024-04-18 23:29] VITALS: BP 100/60
--- NOTE | 2024-04-19 05:43 | W.PN.GI.CBS2 ---
Today's Communication / Plan
-
Improving after additional 48 hrs of IV Methylpred, switch to p.o Prednisone 40 mg today. If ongoing improvement in next 24 hrs on oral steroids can be discharged with close outpatient f/u with her primary Nursing Unit Clerk, Dr. Wisdom. Will d/w with
Dr. Wisdom today particularly if patient is to go later tonight versus tomorrow AM. Rest of care as outlined below.
Assessment / Plan
-
Ana is a 23-year-old female previously known to [facility] for history of ileocolonic inflammatory, nonpenetrating, not stricturing Crohn's disease with no prior surgeries that involved with terminal ileum and cecum who failed Humira who has been
steroid-dependent recently started Skyrizi in the summer 2023 here with Crohn's flare with ileal inflammation on imaging and clinical symptoms of flare
#Active small bowel Crohn's disease
#Crohns Flare
Repeat CRP form 04/18 unchanged from admission with CRP < 5.00 and completed an additional 48 hrs of IV steroids over the weekend after previously failing oral Prednisone on Friday. Suspect she needed more time on IV steroids and her repeat CRP is
reassuring from 04/18.
Recommendations:
- May continue low-fiber, low-residue diet
- Stop IV Methyl pred ( - 04/17 - 04/18)
- Start Prednisone 40 mg once daily with prolonged taper as outpatient
- Repeat CRP reassuring < 5.00 from 04/18
- Fecal calprotectin still pending
- If tolerating low-residue later this afternoon and evening, can likely be discharged later tonight versus tomorrow AM. Discussed with patient this AM
- Slight increase in leukocytosis with WBC 12k, but likely steroid-induced and monitor with repeat CBC this AM
- Stool studies (-) for CDI and infectious etiologies
- Continue vitamin D, IV iron
- Chemical VTE ppx with lovenox while inpatient
- Will help arrange close f/u with her outpatient Nursing Unit Clerk (Dr. Wisdom) and further look into approval regarding approval for Skyrizi q 4 weeks
- Rest of care per primary team
Inpatient GI team will continue to follow while inpatient.
Subjective
Subjective
Date of Service: April 19, 2024
- No acute events
- Repeat CRP form 04/18 unchanged from admission with CRP < 5.00
Feeling well and resting comfortably this AM. Had one formed BM yesterday without any loose stools or diarrhea. Tolerated both lunch and dinner yesterday where she ate mashed potatoes, salmon and green beans without any difficulty. No
nausea/vomiting or other abdominal cramping.
Discussed plan to start oral Prednisone today.
Objective
Data Reviewed
Laboratory Data:
Laboratory Results
04/18/24 06:29
04/18/24 06:29
Laboratory Results
Total Bilirubin 0.4 mg/dl (0.2-1.3) 04/13/24 16:16
AST 19 U/L (14-36) 04/13/24 16:16
ALT 16 U/L (0-35) 04/13/24 16:16
Alkaline Phosphatase 73 U/L (38-126) 04/13/24 16:16
Lipase 84 U/L (23-300) 04/13/24 16:16
Vital Signs and I&O:
Vital Signs
Temp Pulse Resp BP Pulse Ox
98.1 F 74 16 100/60 98
04/18/24 23:29 04/18/24 23:29 04/18/24 23:29 04/18/24 23:29 04/18/24 23:29
I&O
04/17/24 04/18/24 04/19/24
07:59 06:59 06:59
Intake Total 1380 / 1380
Balance 1380 / 1380
Physical Exam
Physical Exam
HEENT: Anicteric and Moist mucous membranes
Cardiology: Normal Sinus Rhythm
Pulmonary: Clear
GI: Soft, Non Distended and Non Tender
Extremities: No Edema
Neuro: Non Focal
--- NOTE | 2024-04-19 07:56 | W.PN.HOSP.TC ---
Today's Communication/Plan
-
Discharge today
Assessment / Plan
Assessment / Plan
Physical Exam
General: No Apparent Distress and Comfortable
HEENT: Normocephalic
Respiratory: Clear to Auscultation Bilaterally
Cardiac: S1/S2;
GI: Soft and Nondistended. Positive bowel sounds.
Musculoskeletal: No Edema
Neuro: Awake, Alert, Oriented, No Motor Deficits and Nonfocal/Grossly Intact
Psych: Calm

CT AP W Iv And Oral Contr
- Moderate contiguous thickening involving the distal ileum, involving approximately the distal 20 cm. Luminal narrowing, - - No evidence for significant small bowel obstruction.
- No evidence of abscess.
- No evidence of free intraperitoneal air.
- Minimal pelvic fluid in the right posterior pelvis.
- The appendix appears normal.

#Active small bowel Crohn's disease
#Steroid-induced leukocytosis
-Patient has a history of Crohn's disease for few years, following with Dr. Wisdom
-Denies any complicating factor of abscess/fistulous tract formation in the past
-Outpatient GI Skyrizi evaluation
-Patient was recommended to come to ER by Dr. Wisdom
-CTAP in ER showing thickening of distal ileal segment of roughly 20 cm
-GI following and help appreciated
-Diet has been changed to LR diet
-IV ferlicit hold as confounding with abd symptoms.
-Status post IV Solu-Medrol
-On discharge: Prednisone 40 mg daily (with 30-day supply), Cholecalciferol 25 mcg daily and PRN Zofran.
-Continue low-fiber, low-residue diet
-Follow-up with Dr. Wisdom outpatient
-I discussed with tower erector helper Dr. Germain via [employer] on April 19, 2024, and patient does not need any iron on discharge
#Anxiety
- stable on Escitalopram
DVT Px: SQH
Full code
I spoke with patient and her dad Jean Claude inside patient's room today. All questions and concerns were answered to satisfaction.
More than 30 minutes spent in discharge including
Final examination of the patient
Summarizing hospital stay
Instructions for continuing care to all relevant caregivers
Preparation of discharge records, prescriptions, and referral forms
Total time spent (in minutes): 42
Anticipated Discharge: Today
Subjective/Interval History
-
Date of Service: April 19, 2024
Patient was seen and examined. She reported feeling fine, denied any symptoms or complaints, and she mentioned she would like to go home today.
Objective Data
-
Labs:
Laboratory Results
04/19/24
06:00
WBC Pending
Hgb Pending
Hct Pending
Plt Count Pending
Sodium Pending
Potassium Pending
Chloride Pending
Carbon Dioxide Pending
BUN Pending
Creatinine Pending
Glucose Pending
Calcium Pending
Total Bilirubin Pending
AST Pending
ALT Pending
Alkaline Phosphatase Pending
Vital Signs:
Vital Signs
Temp Pulse Resp BP Pulse Ox
98.1 F 74 16 100/60 98
04/18/24 23:29 04/18/24 23:29 04/18/24 23:29 04/18/24 23:29 04/18/24 23:29
I&O
04/18/24 04/19/24 04/20/24
06:59 06:59 06:59
Intake Total 1380 / 1380
Balance 1380 / 1380
[2024-04-19 08:00] VITALS: BP 104/81
[2024-04-19] MEDS: DELTASONE 40 MG PO (08:54)
[2024-04-19 09:33] LABS: % Basophils 0.3 % (0-2); % Eosinophils 0.1 % (0-6); % Immature Granulocytes 1.2 % (0-0.5); % Lymphocytes 15.4 % (20.5-51.1); % Monocytes 7.1 % (1.7-9.3); % Neutrophils 75.9 % (42.2-75.2); Absolute Immature Granulocytes 0.1 10^3/uL (0-0.05); Absolute Lymphocytes 1.8 10^3/uL (1.2-3.4); Absolute Monocytes 0.9 10^3/uL (0.1-0.6); Absolute Neutrophils 9.1 10^3/uL (1.4-6.5); Hematocrit 38.7 % (37.0-47.0); Hemoglobin 13.1 g/dL (12.0-16.0); Mean Corp Hgb Conc. 33.9 g/dL (33.0-37.0); Mean Corpuscular Hgb 28.9 pg (27.0-31.0); Mean Corpuscular Volume 85.4 fL (81.0-99.0); Mean Platelet Volume 10.1 fL (7.4-10.4); Nucleated Red Blood Cells % 0 %; Platelet Count 355 10^3/uL (130-400); Red Blood Cell Count 4.53 10^6/uL (4.20-5.40); Red Cell Dist. Width 13.9 % (11.5-14.5)
[2024-04-19 10:06] LABS: ALT (SGPT) 12 U/L (0-35); AST (SGOT) 14 U/L (14-36); Albumin 4.6 g/dl (3.5-5.0); Alkaline Phosphatase 50 U/L (38-126); Blood Urea Nitrogen 19 mg/dl (7-17); Calcium 9.7 mg/dl (8.4-10.2); Carbon Dioxide 27 mmol/L (22-30); Chloride 99 mmol/L (98-107); Estimated Creatinine Clearance 100 ml/min; Glucose 86 mg/dl (70-99); Potassium 4.6 mmol/L (3.5-5.1); Sodium 139 mmol/L (135-145); Total Bilirubin 0.9 mg/dl (0.2-1.3); eGFR > 60.00
--- NOTE | 2024-04-19 11:24 | CM ---
Reviewed the chart notes. CM continues to be available to patient/family and is monitoring medical plan for needs at discharge.
Plan: Discharge when medically stable. No anticipated needs.
[2024-04-19 15:00] VITALS: BP 104/63
--- NOTE | 2024-04-19 16:52 | W.DCSUMMARY ---
Discharge Summary
Discharge Data
Date of Admission: 04/13/24
Date of Discharge: 04/19/24
Total time spent discharging patient (in min): 42
-
Pending Results: No
Hospital Course
23 y/o female with history of Crohn's Disease, who presented with abdominal pain. Patient was started on intravenous steroids. Patient was recommended to come to the emergency room by her food and beverage intern, Dr. Wisdom. CT Abdomen Pelvis was done
showing distal ileum thickening (but please see full radiologist's report for all the details). Patient was transitioned to oral steroids. Stool studies including C. Diff were negative. Patient was then noted to have worsening symptoms, with
abdominal cramping and diarrhea. Intravenous steroids were therefore restarted. Patient's symptoms improved, she was able to tolerate a diet and she was stable for discharge with oral prednisone taper (as discussed with gastroenterology team).
Discharge Plan
-
Patient Disposition: Home (Routine Discharge)
Discharge Diagnosis/Procedures: #Active small bowel Crohn's disease
#Steroid-induced leukocytosis
#Anxiety
CT Abd/pel W Iv And Oral Contr (as per radiologist's report)
'IMPRESSION: Moderate contiguous thickening involving the distal ileum, involving approximately the distal 20 cm. Luminal narrowing, but no evidence for significant small bowel obstruction. No evidence of abscess. No evidence of free intraperitoneal
air.
Minimal pelvic fluid in the right posterior pelvis.
The appendix appears normal.'
Condition: Good
Diet: Low Fiber and Low Residue
Activity: As tolerated
Activity Restrictions/Additional Instructions:
A 1 month's supply of Prednisone tapering dose has been provided to you, after discussion with gastroenterologists Dr. Wisdom and Dr. Germain -- you will need additional Prednisone after another 28 days -- please contact Dr. Wisdom's office for more
Prednisone.
Referrals:
Marin Mosley MD [Family Provider] - in less than 1 week
Zandra Wisdom, DO [Active] - in one to two weeks (Hospital Follow-Up)
Additional Discharge Medication Instructions: Ondansetron and Prednisone Taper are new medications.
Prescriptions:
New
prednisone 10 mg tablet
10 mg PO DIRECTED Qty: 92 0RF
Rx Instructions:
40 mg/day x7 days; 35 mg/day x7 days; 30 mg/day x7 days; 25 mg/day x7 days
ondansetron 4 mg tablet,disintegrating
4 mg PO Q8H PRN (Reason: nausea and vomiting) Qty: 10 0RF
Continued
escitalopram oxalate 10 mg tablet
10 mg PO HS
cholecalciferol (vitamin D3) 25 mcg (1,000 unit) Tablet
25 mcg PO HS
Skyrizi
1 dose IV Q8W
Discharge Orders:
Discharge Patient (As Directed); Ordered 04/19/24
Ordered By: Bret Banegas
Discharge Date and Time
Discharge Date/Time: 04/19/24 18:30
Print Language: UKRAINIAN
[2024-04-19] MEDS: AFLURIA (36 mos+) 2024-2025 FORMULA 0.5 ML IM (17:50)
--- NOTE | 2024-04-19 18:14 | PTCARENOTE ---
Patient discharged home, transported by parents. IV removed by Vicky HASKINS. This RN administered patient's flu vaccine and reviewed discharge instructions with patient and her parents; all verbalized understanding. Low Fiber diet education packet
provided. Patient dressed and gathered belongings independently in room, refused wheelchair escort and ambulated down to car with parents.
[2024-04-20 09:45] LABS: Calprotectin, Fecal 697 ug/g (<=49)
== END 2024-04-19 18:30 | disposition home or self-care (01) | DRG 387 ==
LOC: 2 NORTH 23:13
PROVIDERS: Emergency Medicine; Hospitalist; Nurse Practitioner Family; Student in an Organized Health Care Education/Training Program; ADMITTING PHYSICIAN Internal Medicine; ATTENDING PHYSICIAN Hospitalist; EMERGENCY PHYSICIAN Emergency Medicine; FAMILY PHYSICIAN Family Medicine; OTHER PHYSICIAN Internal Medicine
DX: K50.00 Crohn's disease of small intestine without complications (principal); E61.1 Iron deficiency; E55.9 Vitamin D deficiency, unspecified; F41.9 Anxiety disorder, unspecified; K21.9 Gastro-esophageal reflux disease without esophagitis; Z79.52 Long term (current) use of systemic steroids; Z79.899 Other long term (current) drug therapy
CPT/HCPCS: 74177; 80048; 80053; 83690; 83993; 85025; 85027; 85652; 86140; 87045; 87046; 87324; 87427; 87449; 89055; 90686; 93005; G0008; J2916; Q9967

== ENCOUNTER 2024-08-22 06:26 | Emergency (ER) | payer OTHER, SELFPAY ==
[2024-08-22 06:27] VITALS: BP 114/70
--- NOTE | 2024-08-22 07:17 | ED.GENMED ---
History of Present Illness
General
Chief Complaint: Abdominal Pain
Source: patient, records, family, previous radiology exam and previous hospital records
Exam Limitations: none
Time Seen by Provider: 08/22/24 06:46
Nursing documentation reviewed up to this point in time: agreed with
History of Present Illness
History of Present Illness:
23-year-old female Crohn's diagnosed at age 19 to [facility] followed locally by Dr. Wisdom now on [facility], last colon was few years ago, menstrual cycle now presents with acute onset lower abdominal cramping with nausea vomiting right greater than left no
fever 1 prior CAT scan no bloody stools feeling better now
Past History
Past History
ED Past Medical History: GERD, Psychiatric (Anxiety) and Other (Crohn's disease)
ED Past Surgical History: Other ([place] teeth)
Social History
Tobacco: Non-smoker
Alcohol: None
Drug: None
Personal: Single
Living: with family
Employment: Employed
Review of Systems
Review of Systems
All Other Systems: Not applicable
Constitutional: Denies fever or fatigue
EENT: Reports no symptoms
Respiratory: Reports no symptoms
Cardiac: Reports no symptoms
ABD/GI: Reports abdominal pain, nausea and vomiting
: Reports no symptoms
Endocrine: Reports no symptoms
Hematologic/Lymphatic: Reports no symptoms
Psychiatric: Reports no symptoms
Phy Exam
Physical Exam
Physical Exam:
Physical Exam
General: no apparent distress, not acutely ill
Neck: No jaundice
Heart: s1/s2 regular rate and rhythm, no murmur. equal radial pulses.
Lungs: no acute respiratory distress. clear bilaterally
Abdomen: Tender right greater than left lower abdomen
Neuro: alert and oriented. no focal neurological deficits
Skin: no rash
Psychiatric: well kept. interactive and cooperative
Extremities: no edema.
Course
Orders/Labs/Results
Orders:
Orders
08/22/24 06:52
Test Result ONCE
08/22/24 07:13
0.9% Sodium Chloride 1000 ml [Nss] 1,000 ml IV BOLUS
Ketorolac [Toradol] 30 mg IV NOW STA
Ondansetron Injectable [Zofran] 4 mg IV NOW STA
08/22/24 07:14
US Abdomen - Appendix Only Urgent
Comment:
Reason For Exam: lower abd pain
08/22/24 07:24
Complete Blood Count/With Diff Urgent
ESR [Erythrocyte Sed Rate] Urgent
08/22/24 07:38
C-Reactive Protein Urgent
Comment: ADD ON
Comprehensive Metabolic Panel Urgent
HCG, Serum Qualitative Screen Urgent
Urinalysis Reflex To Culture Urgent
Date Specimen was Collected: 08/22/24
Time Specimen was Collected: 07:25
Urine Microscopic Reflex Cult Urgent
Urine Culture Urgent
KELLY Source: U
Specimen Description:
Date Specimen was Collected: 08/22/24
Time Specimen was Collected: 07:25
08/22/24 08:04
Add On- LAB Urgent
Tests Added?: crp
Abnormal Lab Results
08/22/24 08/22/24
07:24 07:38
WBC 12.1 H 10^3/uL
(4.8-10.8)
RBC 4.10 L 10^6/uL
(4.20-5.40)
MCH 31.2 H pg
(27.0-31.0)
Abs Immat Gran (auto) 0.1 H 10^3/uL
(0-0.05)
Absolute Neuts (auto) 10.4 H 10^3/uL
(1.4-6.5)
Absolute Lymphs (auto) 0.8 L 10^3/uL
(1.2-3.4)
Absolute Monos (auto) 0.8 H 10^3/uL
(0.1-0.6)
Neutrophils % 85.6 H %
(42.2-75.2)
Lymphocytes % 6.9 L %
(20.5-51.1)
ALT 36 H U/L
(0-35)
Ur Occult Blood Reflex 4+ A
(Negative)
Leukocyte Esterase Rfl 1+ A
(Negative)
Urine RBC 7-10 A /HPF
(0-2)
Urine Bacteria (Reflex) Moderate A
(Negative)
Urine Albumin (Reflex) 1+ A
(Neg - Trace)
08/22/24 07:24
08/22/24 07:38
Vital Signs
Initial and Last Documented VS:
Initial Vital Signs
Temp Pulse Resp BP Pulse Ox
97.9 F 85 16 114/70 99
08/22/24 06:27 08/22/24 06:27 08/22/24 06:27 08/22/24 06:27 08/22/24 06:27
Last Documented Vital Signs
Temp Pulse Resp BP Pulse Ox
97.9 F 85 16 114/70 99
08/22/24 06:27 08/22/24 06:27 08/22/24 06:27 08/22/24 06:27 08/22/24 06:27
MDM/Problems Addressed
Differential Diagnosis Includes:
Crohn's enteritis ovarian cyst menstrual cramps appendicitis ectopic
MDM/Problems Addressed:
Abdominal
Chronic conditions affecting care:
Crohn
Acute Exacerbation and/or Progression of Chronic Illness:
Crohn's
*Critical Care Note
Total Time (30-74mins, 75-104mins- exclusive of procedures): Not Applicable
Update Note
Update Note:
7:15 AM suspect Crohn's flare mild, appendicitis possibility, as his other as discussed above, will check inflammatory markers hCG CBC, she is only [address] scan, would like to limit her CT scans obviously with the caveat that would like to not
miss any clinically significant disease
Reviewed decision making with patient and mother
9:20 AM patient feeling better abdomen soft and nontender she is hungry has not received any narcotics her sed rate is 1 CRP is pending believe she can safely be sent home without further imaging will try to facilitate follow-up with her
transcription typist clearly instructed to return to the ER for worsening symptoms
ED Attending Note
-
Portions of this chart may have been created with voice recognition software.� Occasional wrong word or��sound alike� substitutions may have occurred due to the inherent limitations of voice recognition software.
Discharge Plan
Departure
Patient Disposition: Home (Routine Discharge)
Date of Disposition: 08/22/24
Time of Disposition: 09:21
Patient with high blood pressure during this ER visit?: No
Condition: Good
Discharge Problem:
Abdominal pain
Instructions: Nausea and Vomiting, Adult (DC), Abdominal Pain
Prescriptions:
New
ondansetron 4 mg tablet,disintegrating
4 mg PO Q8H PRN (Reason: nausea and vomiting) Qty: 20 0RF
No Action
escitalopram oxalate 10 mg tablet
10 mg PO HS
cholecalciferol (vitamin D3) 25 mcg (1,000 unit) Tablet
25 mcg PO HS
Skyrizi
1 dose IV Q8W
prednisone 10 mg tablet
10 mg PO DIRECTED Qty: 92 0RF
Rx Instructions:
40 mg/day x7 days; 35 mg/day x7 days; 30 mg/day x7 days; 25 mg/day x7 days
ondansetron 4 mg tablet,disintegrating
4 mg PO Q8H PRN (Reason: nausea and vomiting) Qty: 10 0RF
Referrals:
NONE,* [Family Provider] -
Zandra Wisdom DO [Active] - Next open appointment
Activity Restrictions/Additional Instructions:
[place] diet nothing fatty or spicy Zofran as needed for nausea vomiting, Tylenol or ibuprofen for pain, follow-up with your transcription typist return to the ER for worsening symptoms
Interventions
Interventions:
*Risk Screen - Suicide Last Done: 08/22/24 06:27
*General Assessment Last Done: 08/22/24 06:27
*Neglect/Abuse Screening Last Done: 08/22/24 06:27
Discharge Date and Time
Print Language: FIJIAN
[2024-08-22] MEDS: ZOFRAN 4 MG IV (07:30)
[2024-08-22] MEDS: TORADOL 30 MG IV (07:30)
[2024-08-22] MEDS: NSS 1000 IV (07:31)
[2024-08-22 07:34] LABS: % Basophils 0.2 % (0-2); % Eosinophils 0.7 % (0-6); % Immature Granulocytes 0.4 % (0-0.5); % Lymphocytes 6.9 % (20.5-51.1); % Monocytes 6.2 % (1.7-9.3); % Neutrophils 85.6 % (42.2-75.2); Absolute Eosinophils 0.1 10^3/uL (0-0.7); Absolute Immature Granulocytes 0.1 10^3/uL (0-0.05); Absolute Lymphocytes 0.8 10^3/uL (1.2-3.4); Absolute Monocytes 0.8 10^3/uL (0.1-0.6); Absolute Neutrophils 10.4 10^3/uL (1.4-6.5); Hematocrit 37.8 % (37.0-47.0); Hemoglobin 12.8 g/dL (12.0-16.0); Mean Corp Hgb Conc. 33.9 g/dL (33.0-37.0); Mean Corpuscular Hgb 31.2 pg (27.0-31.0); Mean Corpuscular Volume 92.2 fL (81.0-99.0); Mean Platelet Volume 10.2 fL (7.4-10.4); Nucleated Red Blood Cells % 0 %; Platelet Count 192 10^3/uL (130-400); Red Cell Dist. Width 12.1 % (11.5-14.5); White Blood Cell Count 12.1 10^3/uL (4.8-10.8)
[2024-08-22 07:55] LABS: HCG, Serum Qualitative Screen Negative
[2024-08-22 07:58] LABS: ALT (SGPT) 36 U/L (0-35); AST (SGOT) 28 U/L (14-36); Albumin 3.9 g/dl (3.5-5.0); Alkaline Phosphatase 78 U/L (38-126); Blood Urea Nitrogen 15 mg/dl (7-17); Calcium 9.2 mg/dl (8.4-10.2); Carbon Dioxide 25 mmol/L (22-30); Chloride 105 mmol/L (98-107); Glucose 89 mg/dl (70-99); Potassium 3.5 mmol/L (3.5-5.1); Sodium 136 mmol/L (135-145); Total Bilirubin 0.5 mg/dl (0.2-1.3); Total Protein 6.5 g/dl (6.3-8.2); eGFR > 60.00
[2024-08-22 08:00] VITALS: BP 118/68
[2024-08-22 08:09] LABS: Urine Albumin 1+ (Neg - Trace); Urine Bilirubin Negative (Negative); Urine Character Clear (Clear); Urine Color Yellow; Urine Glucose Negative (Negative); Urine Ketone Negative (Negative); Urine Leukocyte 1+ (Negative); Urine Nitrite Negative (Negative); Urine Occult Blood 4+ (Negative); Urine Specific Gravity 1.025 (<1.030); Urine Urobilinogen Negative (Neg - 1+)
[2024-08-22 08:20] LABS: Urine Bacteria Moderate (Negative); Urine White Cell 0-2 /HPF (0-5)
[2024-08-22 08:21] LABS: Erythrocyte Sed Rate 1 mm/hour (0-20)
[2024-08-22 09:57] LABS: C-Reactive Protein < 5.00 mg/L (0.0-10.00)
[2024-08-22 10:00] VITALS: BP 109/66
== END 2024-08-22 11:22 | disposition home or self-care (01) ==
LOC: EMR 06:26
PROVIDERS: EMERGENCY PHYSICIAN Emergency Medicine
DX: R10.9 Unspecified abdominal pain (principal); K50.10 Crohn's disease of large intestine without complications; F41.9 Anxiety disorder, unspecified; K21.9 Gastro-esophageal reflux disease without esophagitis
CPT/HCPCS: 99284; 96374; 96375; 96361; 76705; 80053; 81003; 81015; 84703; 85025; 85652; 86140; 87086

== ENCOUNTER → 2024-12-08 09:56 | Outpatient (REF) | payer OTHER, SELFPAY | LOC: MRI 3T 09:56 | PROVIDERS: ATTENDING PHYSICIAN Internal Medicine; FAMILY PHYSICIAN Family Medicine | DX: K50.818 Crohn's disease of both small and large intestine with other complication (principal) | CPT/HCPCS: 72197; 74183; A9575 ==

== ENCOUNTER 2025-06-11 10:22 | Emergency (ER) | payer OTHER, SELFPAY ==
[2025-06-11 10:23] VITALS: BP 131/81
--- NOTE | 2025-06-11 11:08 | ED.GENMED ---
History of Present Illness
General
Chief Complaint: Musculo-Skeletal Complaint
Source: patient
Exam Limitations: none
Time Seen by Provider: 06/11/25 10:38
Nursing documentation reviewed up to this point in time: agreed with
History of Present Illness
History of Present Illness:
Patient is a 24-year female presents to the ER for evaluation. Patient reports on Friday 5 days ago she broke her toe. That time she was seen at urgent care. She had a small laceration to the area and she was diagnosed with an open
fracture. She was given a boot and given Keflex prescribed for 10 days. She saw a little yellow drainage to the area and wanted to make sure it was not infected. She still has some mild discomfort. Denies any fevers. denies any new drainage .
Past History
Past History
ED Past Medical History: GERD, Psychiatric (Anxiety) and Other (Crohn's disease)
ED Past Surgical History: Other ([place] teeth)
Social History
Tobacco: Non-smoker
Alcohol: None
Drug: None
Personal: Single
Living: with family
Employment: Employed
Phy Exam
General Physical Exam
General Presentation: no apparent distress
General age: appears stated age
General Skin: warm and dry
General Habitus: normal
General Mental: alert
Neurological Exam
Neurological Exam: alert and oriented x3
Musculoskeletal Exam
Musculoskeletal Exam: other (rle with strong pulses + ecchymosis to great toe small healing laceration noted to the doral aspect of the great toe just proximal to the nail no erythema no drainage )
Skin Exam
Skin Exam: normal color and warm/dry
Psychiatric Exam
Psychiatric Exam: normal mood/affect
Course
Vital Signs
Initial and Last Documented VS:
Initial Vital Signs
Temp Pulse Resp BP Pulse Ox
98.2 F 78 20 131/81 97
06/11/25 10:23 06/11/25 10:23 06/11/25 10:23 06/11/25 10:23 06/11/25 10:23
Last Documented Vital Signs
Temp Pulse Resp BP Pulse Ox
98.2 F 78 20 131/81 97
06/11/25 10:23 06/11/25 10:23 06/11/25 10:23 06/11/25 10:23 06/11/25 10:23
MDM/Problems Addressed
Differential Diagnosis Includes:
not limited to: wound check, toe infection
MDM/Problems Addressed:
Patient sustained a fracture to the great toe 5 days ago was seen urgent care diagnosed with an open fracture due to small laceration to the area She noted small amount of yellow drainage which is what prompted her to come to the ER. She is on
Keflex and has taken it for the past several days and is prescribed a total of 10 days of Keflex. She still has at least 5 days left. On exam there is no obvious evidence of infection laceration appears healing there is no erythema. Scattered
bruising mild swelling. Patient was given a large boot. Will place in a cast shoe so that area does not rub over toe however at this time there is no evidence of infection wound appears healing instructed patient to continue Keflex.
Urgent care did give patient podiatry to follow-up with she was going to call on Friday to make an appointment encourage patient to follow-up with podiatry as previously recommended.
*Pulse Oximetry
SaO2: 97
Oxygen Mode of Delivery: Room air
Patient hypoxic: no
*Critical Care Note
Total Time (30-74mins, 75-104mins- exclusive of procedures): Not Applicable
ED Attending Note
-
Portions of this chart may have been created with voice recognition software.� Occasional wrong word or��sound alike� substitutions may have occurred due to the inherent limitations of voice recognition software.
Discharge Plan
Departure
Patient Disposition: Home (Routine Discharge)
Date of Disposition: 06/11/25
Time of Disposition: 11:12
Patient with high blood pressure during this ER visit?: No
Condition: Fair
Covid-19: Not Applicable
Discharge Problem:
wound check
Instructions: Wound Care (DC)
Prescriptions:
No Action
escitalopram oxalate 10 mg tablet
10 mg PO HS
cholecalciferol (vitamin D3) 25 mcg (1,000 unit) Tablet
25 mcg PO HS
Skyrizi
1 dose IV Q8W
prednisone 10 mg tablet
10 mg PO DIRECTED Qty: 92 0RF
Rx Instructions:
40 mg/day x7 days; 35 mg/day x7 days; 30 mg/day x7 days; 25 mg/day x7 days
ondansetron 4 mg tablet,disintegrating
4 mg PO Q8H PRN (Reason: nausea and vomiting) Qty: 10 0RF
ondansetron 4 mg tablet,disintegrating
4 mg PO Q8H PRN (Reason: nausea and vomiting) Qty: 20 0RF
Referrals:
Marin Mosley MD [Family Provider, Family Practice]
Activity Restrictions/Additional Instructions:
Continue to take Keflex as previously prescribed. Wear cast shoe for support. You may keep open to air as discussed while you are resting. Follow-up with podiatry as previously recommended and return if any worsening of symptoms including
increasing pain redness fever chills swelling increasing drainage.
Interventions
Interventions:
*General Assessment Last Done: 06/11/25 10:23
*Neglect/Abuse Screening Last Done: 06/11/25 10:23
ED-Musculoskeletal Assessment Last Done: 06/11/25 10:56
ED-Skin Assessment Last Done: 06/11/25 10:56
Discharge Date and Time
Print Language: SLOVAK
== END 2025-06-11 11:40 | disposition home or self-care (01) ==
LOC: EMR 10:22
PROVIDERS: EMERGENCY PHYSICIAN Emergency Medicine; FAMILY PHYSICIAN Family Medicine
DX: Z48.00 Encounter for change or removal of nonsurgical wound dressing (principal)
CPT/HCPCS: 99282